=== PATIENT | male | born 1970 | race Caucasian/White ===

== ENCOUNTER 2023-10-13 04:37 | Day surgery (SDC) | payer OTHER ==
[2023-10-05 16:42] VITALS: BMI 22.4
[2023-10-13] MEDS ORDERED: BUPIVACAINE HCL/PF 0.25% (2.5MG/ML) 10 ML VIAL ONE (07:25)
[2023-10-13] MEDS ORDERED: ceFAZolin SODIUM 1 GM VIAL ONE (07:47)
[2023-10-13] MEDS ORDERED: LIDOCAINE HCL/PF 2% SDV 5ML VIAL ONE (07:47)
[2023-10-13] MEDS ORDERED: FENTANYL CITRATE/PF 50 MCG/ML VIAL ONE (07:47)
[2023-10-13] MEDS ORDERED: PROPOFOL 20 ML ONE (07:48)
[2023-10-13] MEDS ORDERED: MIDAZOLAM HCL 2 MG/2 ML SINGLE DOSE VIAL ONE (07:48)
[2023-10-13] MEDS ORDERED: BACITRACIN ZINC 15 GM TUBE TOPICAL OINTMENT ONE (08:13)
[2023-10-13] MEDS ORDERED: ACETAMINOPHEN 1000 MG/100 ML BAG IVPB ONE (08:14)
[2023-10-13] MEDS ORDERED: ceFAZolin SODIUM 1 GM VIAL IVPB ONE (08:15)
[2023-10-13] MEDS ORDERED: DEXTROSE 5%-0.45% SALINE 1,000 ML IV SCH (08:15)
[2023-10-13] MEDS ORDERED: BUPIVACAINE HCL/PF 0.25% (2.5MG/ML) 10 ML VIAL IJ ONE (08:29)
[2023-10-13] MEDS ORDERED: DEXAMETHASONE SOD PHOSPHATE 4 MG/1 ML VIAL ONE (08:39)
[2023-10-13] MEDS ORDERED: ONDANSETRON 4 MG/2 ML VIAL ONE (08:39)
[2023-10-13] MEDS ORDERED: BACITRACIN ZINC 15 GM TUBE TOPICAL OINTMENT TP ONE (08:46)
[2023-10-13] MEDS ORDERED: oxyCODONE HCL 5 MG TABLET PO PRN (09:09)
[2023-10-13] MEDS ORDERED: ONDANSETRON 4 MG/2 ML VIAL IVPUSH PRN (09:09)
[2023-10-13] MEDS ORDERED: KETOROLAC TROMETHAMINE 30 MG/1 ML VIAL IVPUSH PRN (09:09)
[2023-10-13] MEDS ORDERED: LACTATED RINGERS SOLUTION 1,000 ML IV SCH (09:15)
[2023-10-13] MEDS ORDERED: KETOROLAC TROMETHAMINE 30 MG/1 ML VIAL ONE (09:41)
[2023-10-13] MEDS ORDERED: ACETAMINOPHEN INJECTION 100 ML IVPB ONE (09:41)
[2023-10-13 11:24] VITALS: RESP 20
[2023-10-13 11:33] VITALS: BP 118/68; PULSE 55; TEMP 98.5
== END 2023-10-13 11:30 | disposition home or self-care (01) ==
LOC: JASU-SURG 04:37
PROVIDERS: ATTEND Urology
PROC: 0VBF0ZZ Excision of Right Spermatic Cord, Open Approach (ICD-10-PCS; principal; 2023-10-13 08:00)
DX: N43.3 Hydrocele, unspecified (principal)
CPT/HCPCS: 94760